=== PATIENT | male | born 1935 | race African-American/Black ===

== ENCOUNTER → 2022-06-20 | Day surgery (SDC) | payer MEDICARE ==
[~2022-06-20] MED LIST: APIX2.5T MT; ASPI-1497 PO; ATOR10TA PO; COR6 PO; HYDR25TA MT; LATA2.5D14 EACHEYE; LIDOCAINE HCL 1% 30ML VIAL (10MG/ML) ONE; OLME40TA11 PO; SOTA80TA25 MT
== END | disposition home or self-care (01) ==
LOC: RADANGIO 08:13
PROVIDERS: ATTEND Podiatrist Foot & Ankle Surgery
DX: M86.8X7 Other osteomyelitis, ankle and foot (principal); Z79.82 Long term (current) use of aspirin; Z79.899 Other long term (current) drug therapy; Z98.890 Other specified postprocedural states
CPT/HCPCS: 36573; 71045; C1725; C1751; J3490